=== PATIENT | female | born 1950 | race Caucasian/White ===

== ENCOUNTER 2023-10-12 14:26 | Inpatient (IN) | payer MEDICARE, MEDICAID ==
[~2023-10-12] VITALS: Ht 167.6 cm; Wt 113.0 kg
[~2023-10-12 14:26] MED LIST: DIAZ5TAB3 PO; HYDR-2457 PO; LISI40TA16 PO; MORP1TAB15 PO
[2023-10-12 15:24] LABS: Basophils # (auto) 0 10 ^3/uL (0-0.2); Basophils % (auto) 0.6 % (0.0-2.0); Eosinophils # (auto) 0.3 10 ^3/uL (0-0.8); Eosinophils % (auto) 4.7 % (0.0-7.0); Hematocrit 29.4 % (36.0-46.0); Hemoglobin 9.9 g/dL (12.2-16.2); Lymphocytes # (auto) 1.3 10 ^3/uL (0.4-5.4); Lymphocytes % (auto) 19.2 % (10.0-50.0); Mean Corpuscular Hemoglobin 29.2 pg (28.0-32.0); Mean Corpuscular Hgb Conc. 33.8 g/dL (32.0-36.0); Mean Corpuscular Volume 86.4 fL (80.0-100.0); Monocytes # (auto) 0.5 10 ^3/uL (0-1.3); Monocytes % (auto) 7.3 % (0.0-12.0); Neutrophils # (auto) 4.8 10 ^3/uL (1.6-8.6); Neutrophils % (auto) 68.2 % (37.0-80.0); Nucleated Red Blood Cells % 0.1 %; Red Cell Distribution Width 14.3 % (11.8-14.3)
[2023-10-12 15:39] LABS: Chloride 103 mmol/L (98-107); Sodium 137 mmol/L (136-145)
[2023-10-12 15:40] LABS: Anion Gap 4 (5-15); Carbon Dioxide 30 mmol/L (20-30)
[2023-10-12 15:41] LABS: Calcium 8.9 mg/dL (8.7-10.4)
[2023-10-12 15:45] LABS: Blood Urea Nitrogen 12 mg/dL (9-23); Glucose 149 mg/dL (74-106)
[2023-10-12] MEDS: MORPHINE SULFATE INJ 2 MG/ml SYRG IV ONE (18:15)
[2023-10-12] MEDS: ONDANSETRON HCL 4 MG/2 ML VIAL IV ONE (18:15)
[2023-10-12] MEDS ORDERED: ACETAMINOPHEN 325 MG TAB PO PRN ×2 (18:30→18:45)
[2023-10-12] MEDS ORDERED: DOCUSATE SOD 100 MG CAP PO PRN ×2 (18:30→18:45)
[2023-10-12] MEDS ORDERED: ONDANSETRON HCL 4 MG/2 ML VIAL IV PRN ×2 (18:30→18:45)
[2023-10-12] MEDS ORDERED: HYDROmorphone HCL 2 MG/ML VL/or syr IV PRN ×2 (18:30→18:45)
[2023-10-12] MEDS ORDERED: HYDROcodone-ACET 5/325MG TAB PO PRN (18:30)
[2023-10-12 18:45] VITALS: PULSE 82; RESP 15; O2SAT 99
[2023-10-12] MEDS ORDERED: PERCOT PO (19:09)
[2023-10-12] MEDS ORDERED: MORP1TAB12 PO (19:09)
[2023-10-12 19:28] LABS: Urine Bacteria None Seen /hpf (None Seen)
[2023-10-12 19:58] LABS: Urine Blood 2+ /uL (Negative); Urine Clarity Turbid (Clear); Urine Color Yellow (Yellow); Urine Mucus FEW (None Seen); Urine Protein, UAD TRACE (Negative); Urine Urobilinogen 2 mg/dL (Negative); Urine WBC 91 /hpf (0 - 5)
[2023-10-12] MEDS ORDERED: SODIUM CHLOR 0.9% PF (SALINE LOCK) 10ML VIAL/SYR IV SCH (22:00)
[2023-10-12] MEDS: SODIUM CHLOR 0.9% PF (SALINE LOCK) 10ML VIAL/SYR IV SCH (22:22)
[2023-10-12] MEDS: MORPHINE SULF 15mg ER tab PO SCH (22:31)
[2023-10-12] MEDS: OXYCODONE W/ ACETAMINOPHEN 5/325MG TABLET PO SCH (22:31)
[2023-10-12] MEDS: diazePAM 5 MG TAB PO SCH (22:31)
[2023-10-13] VITALS (7 sets, daily range): BP systolic 97–151; BP diastolic 31–60; PULSE 72–103; RESP 18–20; TEMP 97.5–98.9; O2SAT 95–99
[2023-10-13] MEDS: ENOXAPARIN SOD 40 MG/0.4 ML SYRINGE SC SCH (09:42)
[2023-10-13 09:43] LABS: Hepatitis B Surface Antigen Negative (Negative)
[2023-10-13] MEDS: LISINOPRIL 20 MG TAB PO SCH (09:43)
[2023-10-13] MEDS ORDERED: ENOXAPARIN SOD 40 MG/0.4 ML SYRINGE SC SCH (10:00)
[2023-10-13 10:04] LABS: Hepatitis C Antibody Negative (Negative)
[2023-10-13] MEDS: SODIUM CHLORIDE 0.9% 1,000 ML IV SCH (10:30)
[2023-10-13] MEDS: PIPERACILLIN-TAZOB 3.375GM 100 ML IV ONE (10:30)
[2023-10-13] MEDS ORDERED: GABA-1250 PO (13:10)
[2023-10-13] MEDS: PIPERACILLIN-TAZOB 3.375GM 100 ML IV SCH (14:25)
[2023-10-13] MEDS: HYDROcodone-ACET 5/325MG TAB PO PRN (17:31)
[2023-10-13] MEDS ORDERED: BUPRTAB3 PO (18:10)
[2023-10-13] MEDS ORDERED: ASPI81CH74 PO (18:11)
[2023-10-13] MEDS ORDERED: ASPI-498 OR (18:11)
[2023-10-13] MEDS ORDERED: MONT-8 PO (18:12)
[2023-10-13] MEDS ORDERED: SERT-206 PO (18:13)
[2023-10-14] VITALS (8 sets, daily range): BP systolic 120–154; BP diastolic 38–60; PULSE 75–94; RESP 15–22; TEMP 97.8–98.5; O2SAT 96–99
[2023-10-14 05:50] LABS: Basophils # (auto) 0 10 ^3/uL (0-0.2); Basophils % (auto) 0.7 % (0.0-2.0); Eosinophils # (auto) 0.5 10 ^3/uL (0-0.8); Eosinophils % (auto) 7.9 % (0.0-7.0); Hematocrit 27.5 % (36.0-46.0); Hemoglobin 9.4 g/dL (12.2-16.2); Lymphocytes % (auto) 16.3 % (10.0-50.0); Mean Corpuscular Hemoglobin 29.4 pg (28.0-32.0); Mean Corpuscular Hgb Conc. 34.3 g/dL (32.0-36.0); Mean Corpuscular Volume 85.8 fL (80.0-100.0); Monocytes # (auto) 0.3 10 ^3/uL (0-1.3); Monocytes % (auto) 5.8 % (0.0-12.0); Neutrophils # (auto) 4.1 10 ^3/uL (1.6-8.6); Neutrophils % (auto) 69.3 % (37.0-80.0); Red Cell Distribution Width 14.1 % (11.8-14.3); White Blood Cell 5.9 10^3/uL (4.4-10.8)
[2023-10-14 06:07] LABS: INR 1.07 (0.9-1.15); Partial Thromboplastin Time 26.1 SEC (24.5-34.5); Prothrombin Time 11.3 sec (9.3-11.8)
[2023-10-14 06:15] LABS: Alanine Aminotransferase 10 U/L (7-40); Alkaline Phosphatase 82 U/L (46-116); Anion Gap 1 (5-15); Aspartate Aminotransferase 13 U/L (13-40); BUN/Creatinine Ratio 18.9 (10.0-20.0); Blood Urea Nitrogen 10 mg/dL (9-23); Calcium 8.7 mg/dL (8.7-10.4); Carbon Dioxide 36 mmol/L (20-30); Chloride 102 mmol/L (98-107); Glucose 124 mg/dL (74-106); Sodium 139 mmol/L (136-145)
[2023-10-14 06:16] LABS: Bilirubin, Total 0.7 mg/dL (0.2-1.0); Total Protein 6.1 g/dL (5.7-8.2)
[2023-10-15] VITALS (7 sets, daily range): BP systolic 105–158; BP diastolic 33–70; PULSE 72–87; RESP 15–22; TEMP 97.7–98.5; O2SAT 96–100
[2023-10-15] MEDS ORDERED: CEPH500C PO (11:11)
== END 2023-10-15 18:20 | disposition home health service (06) | DRG 563 ==
LOC: EDBD 14:26 → ER 14:30 → OVERFLOW 18:21 → WEST WING 23:49
PROVIDERS: ADMIT Internal Medicine; ATTEND Internal Medicine
DX: S82.54XA Nondisplaced fracture of medial malleolus of right tibia, initial encounter for closed fracture (principal); N39.0 Urinary tract infection, site not specified; J96.10 Chronic respiratory failure, unspecified whether with hypoxia or hypercapnia; Z68.41 Body mass index [BMI] 40.0-44.9, adult; I10 Essential (primary) hypertension; J44.9 Chronic obstructive pulmonary disease, unspecified; E11.9 Type 2 diabetes mellitus without complications; M17.11 Unilateral primary osteoarthritis, right knee; E66.9 Obesity, unspecified; D64.9 Anemia, unspecified; Z87.891 Personal history of nicotine dependence; Z79.4 Long term (current) use of insulin; Z90.49 Acquired absence of other specified parts of digestive tract; Z90.710 Acquired absence of both cervix and uterus; W18.39XA Other fall on same level, initial encounter; Y93.89 Activity, other specified; Y92.89 Other specified places as the place of occurrence of the external cause; Y99.8 Other external cause status
CPT/HCPCS: 36415; 71045; 73562; 73600; 73700; 80048; 80053; 81001; 83036; 85025; 85610; 85730; 86803; 87086; 87340; 96374; 96375; 97163; G0378; J2405; J2543

== ENCOUNTER 2023-12-30 20:17 | Inpatient (IN) | payer MEDICARE, MEDICAID ==
[~2023-12-30] VITALS: Ht 167.6 cm; Wt 109.3 kg
[~2023-12-30 20:17] MED LIST changes: +ASPI81CH74 PO; +BUPRTAB3 PO; +CEPH500C PO; +GABA-1250 PO; +MONT-8 PO; +MORP1TAB12 PO; -MORP1TAB15 PO; +PERCOT PO; +SERT-206 PO
[2023-12-30 21:20] VITALS: PULSE 95; RESP 18; O2SAT 96
[2023-12-30 21:30] LABS: Basophils # (auto) 0 10 ^3/uL (0-0.2); Basophils % (auto) 0.3 % (0.0-2.0); Eosinophils # (auto) 0.2 10 ^3/uL (0-0.8); Eosinophils % (auto) 1.8 % (0.0-7.0); Hematocrit 32.7 % (36.0-46.0); Hemoglobin 10.9 g/dL (12.2-16.2); Lymphocytes # (auto) 0.5 10 ^3/uL (0.4-5.4); Lymphocytes % (auto) 5.3 % (10.0-50.0); Mean Corpuscular Hemoglobin 27.8 pg (28.0-32.0); Mean Corpuscular Hgb Conc. 33.4 g/dL (32.0-36.0); Mean Corpuscular Volume 83.2 fL (80.0-100.0); Monocytes # (auto) 0.4 10 ^3/uL (0-1.3); Monocytes % (auto) 3.7 % (0.0-12.0); Neutrophils # (auto) 8.4 10 ^3/uL (1.6-8.6); Neutrophils % (auto) 88.9 % (37.0-80.0); Platelet Count (auto) 137 10^3/uL (140-450); Red Blood Cells 3.92 10^6/uL (4.0-5.20); Red Cell Distribution Width 14.3 % (11.8-14.3); White Blood Cell 9.5 10^3/uL (4.4-10.8)
[2023-12-30 21:35] LABS: Albumin 3.4 g/dL (3.2-4.8); Alkaline Phosphatase 97 U/L (46-116); Anion Gap 3 (5-15); Aspartate Aminotransferase 16 U/L (13-40); BUN/Creatinine Ratio 19.2 (10.0-20.0); Bilirubin, Total 0.9 mg/dL (0.2-1.0); Blood Urea Nitrogen 10 mg/dL (9-23); Calcium 9.2 mg/dL (8.7-10.4); Carbon Dioxide 36 mmol/L (20-31); Chloride 99 mmol/L (98-107); Glucose 170 mg/dL (74-106); Lipase 35 U/L (12-53); Potassium 4.2 mmol/L (3.5-5.1); Sodium 138 mmol/L (136-145); Total Protein 6.9 g/dL (5.7-8.2)
[2023-12-30 21:41] LABS: Alanine Aminotransferase 9 U/L (7-40)
[2023-12-30] MEDS: AZITHROMYCIN 250 MG TAB PO ONE (23:01)
[2023-12-30] MEDS: methylPREDNISolone SOD SUCC 125 MG/2 ML VL IV ONE (23:52)
[2023-12-31] VITALS (12 sets, daily range): BP systolic 107–163; BP diastolic 27–70; PULSE 76–93; RESP 16–22; TEMP 97.8–98.8; O2SAT 94–100
[2023-12-31 00:30] LABS: Urine Amorphous Crystal FEW /hpf (None Seen); Urine Bacteria FEW /hpf (None Seen); Urine Blood 2+ /uL (Negative); Urine Clarity Turbid (Clear); Urine Color Colorless (Yellow); Urine Protein, UAD TRACE (Negative); Urine Specific Gravity 1.012 (1.001-1.035); Urine Urobilinogen 2 mg/dL (Negative); Urine WBC 10 /hpf (0 - 5); Urine pH 8.5 (5.0-9.0)
[2023-12-31] MEDS ORDERED: SODIUM CHLORIDE 0.9% 500 ML IV ONE (02:30)
[2023-12-31] MEDS ORDERED: ACETAMINOPHEN 500 MG TAB PO PRN (02:30)
[2023-12-31] MEDS: ATORVASTATIN 20 MG TAB PO ONE (02:36)
[2023-12-31] MEDS: ENOXAPARIN SOD 40 MG/0.4 ML SYRINGE SC ONE (02:37)
[2023-12-31] MEDS: IPRATROPIUM BROM 0.5 MG/2.5ML INH SOL NEB SCH (02:44)
[2023-12-31] MEDS: LEVALBUTEROL HCL 1.25 MG/3 ML NEB NEB SCH (02:44)
[2023-12-31] MEDS: SODIUM CHLORIDE 0.9% 1,800 ML IV ONE (02:45)
[2023-12-31] MEDS: ASPirin 81 mg TAB PO ONE (02:55)
[2023-12-31] MEDS: cefTRIAXone 1GM/50ML D5W 50 ML IV ONE (03:03)
[2023-12-31 03:43] LABS: COVID19 ANTIGEN SOFIA FIA NEGATIVE (NEGATIVE)
[2023-12-31 03:51] LABS: Anion Gap 2 (5-15); Carbon Dioxide 37 mmol/L (20-31); Chloride 99 mmol/L (98-107); Potassium 4.2 mmol/L (3.5-5.1); Sodium 138 mmol/L (136-145)
[2023-12-31 03:52] LABS: Calcium 9.5 mg/dL (8.7-10.4); INR 1.12 (0.9-1.15); Partial Thromboplastin Time 28.1 SEC (24.5-34.5); Prothrombin Time 11.8 sec (9.3-11.8)
[2023-12-31 03:53] LABS: % Iron Saturation 13.7 % (15-50)
[2023-12-31 03:57] LABS: Blood Urea Nitrogen 11 mg/dL (9-23); Glucose 199 mg/dL (74-106)
[2023-12-31 04:32] LABS: CRP High Sensitivity 3.84 mg/dL (<1.0)
[2023-12-31] MEDS: PANTOPRAZOLE 40 MG/10 ML VIAL INJ IV SCH (04:51)
[2023-12-31] MEDS ORDERED: GABAPENTIN 300 MG CAP PO SCH (06:00)
[2023-12-31] MEDS ORDERED: VANCOMYCIN PER PHARMACY 0 MG IV SCH (06:15)
[2023-12-31] MEDS: VANCOMYCIN 1.25 GM/250 ML IV ONE (08:08)
[2023-12-31 08:14] LABS: Basophils # (auto) 0 10 ^3/uL (0-0.2); Basophils % (auto) 0.1 % (0.0-2.0); Eosinophils # (auto) 0 10 ^3/uL (0-0.8); Eosinophils % (auto) 0.1 % (0.0-7.0); Hematocrit 32.7 % (36.0-46.0); Hemoglobin 11.1 g/dL (12.2-16.2); Lymphocytes # (auto) 0.4 10 ^3/uL (0.4-5.4); Lymphocytes % (auto) 5.9 % (10.0-50.0); Mean Corpuscular Hemoglobin 28.4 pg (28.0-32.0); Mean Corpuscular Hgb Conc. 33.9 g/dL (32.0-36.0); Mean Corpuscular Volume 83.8 fL (80.0-100.0); Monocytes # (auto) 0 10 ^3/uL (0-1.3); Monocytes % (auto) 0.8 % (0.0-12.0); Neutrophils # (auto) 5.6 10 ^3/uL (1.6-8.6); Neutrophils % (auto) 93.1 % (37.0-80.0); Platelet Count (auto) 130 10^3/uL (140-450); Red Blood Cells 3.91 10^6/uL (4.0-5.20); Red Cell Distribution Width 14.4 % (11.8-14.3)
[2023-12-31] MEDS: VANCOMYCIN 1GM/250ML 200 ML IV ONE ×2 (08:25→23:21)
[2023-12-31] MEDS: IOHEXOL 350 MG/ML 100ML IJ ONE ×2 (08:26)
[2023-12-31 08:30] LABS: Albumin 3.4 g/dL (3.2-4.8); Alkaline Phosphatase 93 U/L (46-116); Anion Gap 5 (5-15); Aspartate Aminotransferase 12 U/L (13-40); BUN/Creatinine Ratio 21.4 (10.0-20.0); Blood Urea Nitrogen 12 mg/dL (9-23); Calcium 9.4 mg/dL (8.7-10.4); Carbon Dioxide 33 mmol/L (20-31); Chloride 100 mmol/L (98-107); Glucose 256 mg/dL (74-106); Potassium 4.2 mmol/L (3.5-5.1); Sodium 138 mmol/L (136-145)
[2023-12-31 08:31] LABS: Bilirubin, Total 0.7 mg/dL (0.2-1.0)
[2023-12-31 08:36] LABS: Alanine Aminotransferase < 9 U/L (7-40)
[2023-12-31] MEDS: MONTELUKAST SODIUM 10 MG TAB PO SCH (10:53)
[2023-12-31] MEDS: FERROUS SULFATE 325mg EC TAB PO SCH (10:53)
[2023-12-31] MEDS: CEFEPIME 2GM/50ML NS 50 ML IV SCH (10:53)
[2023-12-31] MEDS: predniSONE 20 MG TAB PO SCH (10:54)
[2023-12-31] MEDS: ASPirin 81 mg TAB PO SCH (10:54)
[2023-12-31] MEDS: SERTRALINE HCL 50 MG TAB PO SCH (10:54)
[2023-12-31] MEDS: ERGOCALCIFEROL 50,000 UNIT(1.25MG) CAP PO SCH (10:57)
[2023-12-31] MEDS: ACCU-CHEK COMFORT CURVE STRIP VI ONE (10:59)
[2023-12-31] MEDS: InsuLIN REG 1unit/0.01ml Soln (100units/ml) SC ONE (11:32)
[2023-12-31] MEDS: DEXTROSE (50%) 50ML SYRG IV ONE (11:33)
[2023-12-31 18:32] LABS: Rapid Influenza A Negative (Negative); Rapid Influenza B Negative (Negative)
[2023-12-31] MEDS ORDERED: METO25TA5 PO (18:51)
[2023-12-31] MEDS ORDERED: ATOR20TA50 PO (18:51)
[2023-12-31] MEDS: AZITHROMYCIN 500MG/ 250ML 250 ML IV SCH (20:24)
[2023-12-31] MEDS: ATORVASTATIN 20 MG TAB PO SCH (20:34)
[2023-12-31] MEDS ORDERED: VANCOMYCIN 1GM/250ML 250 ML IV SCH (22:00)
[2024-01-01] VITALS (18 sets, daily range): BP systolic 133–155; BP diastolic 50–70; PULSE 70–103; RESP 16–22; TEMP 98–98.6; O2SAT 94–100
[2024-01-01] MEDS ORDERED: EPINEPHrine HCL 1 MG/1 ML AMP ONE (08:19)
[2024-01-01] MEDS ORDERED: LIDOCAINE 2%HCL (LOCAL ANESTH.) INJ 20ML MDV ONE (08:19)
[2024-01-01] MEDS ORDERED: GLYCOPYRROLATE 0.2 MG/ML 1ML VIAL ONE (08:19)
[2024-01-01] MEDS ORDERED: LIDOCAINE 2% JELLY 11ml (GLYDO) ONE (08:19)
[2024-01-01] MEDS ORDERED: FLUMAZENIL 0.1 MG/ML INJ 10ML MDV IV ONE (08:20)
[2024-01-01] MEDS ORDERED: SODIUM CHLORIDE LOCK 10 ML ONE (08:20)
[2024-01-01] MEDS ORDERED: NALOXONE HCL 0.4 MG/ML VIAL ONE (08:20)
[2024-01-01] MEDS ORDERED: cefTRIAXone 1GM/50ML D5W 50 ML IV SCH (09:00)
[2024-01-01] MEDS: fentaNYL CITRATE 100 MCG/2 ML VL ONE (09:01)
[2024-01-01] MEDS: MIDAZOLAM HCL 5 MG/ML-1ML VIAL ONE (09:01)
[2024-01-01] MEDS ORDERED: ENOXAPARIN SOD 60 MG/0.6 ML SYRINGE SC SCH (10:00)
[2024-01-01 12:44] LABS: Alanine Aminotransferase 11 U/L (7-40); Albumin 3.2 g/dL (3.2-4.8); Alkaline Phosphatase 83 U/L (46-116); Anion Gap 6 (5-15); Aspartate Aminotransferase 18 U/L (13-40); BUN/Creatinine Ratio 30.2 (10.0-20.0); Blood Urea Nitrogen 16 mg/dL (9-23); Calcium 9.2 mg/dL (8.7-10.4); Carbon Dioxide 34 mmol/L (20-31); Chloride 102 mmol/L (98-107); Glucose 176 mg/dL (74-106); Potassium 3.6 mmol/L (3.5-5.1); Sodium 142 mmol/L (136-145)
[2024-01-01 12:45] LABS: Bilirubin, Total 0.8 mg/dL (0.2-1.0); Total Protein 6.4 g/dL (5.7-8.2)
[2024-01-01 16:42] LABS: Basophils # (auto) 0 10 ^3/uL (0-0.2); Basophils % (auto) 0.2 % (0.0-2.0); Eosinophils # (auto) 0 10 ^3/uL (0-0.8); Eosinophils % (auto) 0.3 % (0.0-7.0); Hematocrit 31.7 % (36.0-46.0); Hemoglobin 10.6 g/dL (12.2-16.2); Lymphocytes # (auto) 0.8 10 ^3/uL (0.4-5.4); Lymphocytes % (auto) 10.6 % (10.0-50.0); Mean Corpuscular Hemoglobin 28.1 pg (28.0-32.0); Mean Corpuscular Hgb Conc. 33.4 g/dL (32.0-36.0); Mean Corpuscular Volume 84.2 fL (80.0-100.0); Monocytes # (auto) 0.4 10 ^3/uL (0-1.3); Neutrophils % (auto) 82.9 % (37.0-80.0); Platelet Count (auto) 159 10^3/uL (140-450); Red Blood Cells 3.76 10^6/uL (4.0-5.20); Red Cell Distribution Width 14.5 % (11.8-14.3); White Blood Cell 7.2 10^3/uL (4.4-10.8)
[2024-01-01] MEDS: VANCOMYCIN 1GM/250ML 250 ML IV SCH ×2 (17:33→23:30)
[2024-01-01] MEDS: HYDROcodone-ACET 5/325MG TAB PO PRN (20:46)
[2024-01-01] MEDS: MUPIROCIN 2% OINT 15gm or 22gm FOR MRSA NARES EACHNOSTRI SCH (22:00)
[2024-01-02] VITALS (15 sets, daily range): BP systolic 138–171; BP diastolic 42–74; PULSE 83–94; RESP 18–20; TEMP 97.3–98.6; O2SAT 92–99
[2024-01-02 07:33] LABS: Anion Gap 4 (5-15); Carbon Dioxide 35 mmol/L (20-31); Chloride 102 mmol/L (98-107); Potassium 3.1 mmol/L (3.5-5.1); Sodium 141 mmol/L (136-145)
[2024-01-02 07:36] LABS: Basophils # (auto) 0 10 ^3/uL (0-0.2); Basophils % (auto) 0.3 % (0.0-2.0); Eosinophils # (auto) 0.1 10 ^3/uL (0-0.8); Eosinophils % (auto) 1.6 % (0.0-7.0); Hematocrit 29.9 % (36.0-46.0); Hemoglobin 10.3 g/dL (12.2-16.2); Lymphocytes # (auto) 1.2 10 ^3/uL (0.4-5.4); Lymphocytes % (auto) 17.7 % (10.0-50.0); Mean Corpuscular Hemoglobin 28.6 pg (28.0-32.0); Mean Corpuscular Hgb Conc. 34.4 g/dL (32.0-36.0); Mean Corpuscular Volume 83.1 fL (80.0-100.0); Monocytes # (auto) 0.4 10 ^3/uL (0-1.3); Monocytes % (auto) 6.7 % (0.0-12.0); Neutrophils # (auto) 4.9 10 ^3/uL (1.6-8.6); Neutrophils % (auto) 73.7 % (37.0-80.0); Platelet Count (auto) 152 10^3/uL (140-450); Red Cell Distribution Width 14.4 % (11.8-14.3); White Blood Cell 6.6 10^3/uL (4.4-10.8)
[2024-01-02 07:39] LABS: Blood Urea Nitrogen 13 mg/dL (9-23); Glucose 131 mg/dL (74-106)
[2024-01-02] MEDS: POTASSIUM CHL 20MEQ/100ML 100 ML IV SCH (09:00)
[2024-01-02] MEDS: ENOXAPARIN SOD 60 MG/0.6 ML SYRINGE SC SCH (11:12)
[2024-01-02] MEDS: VANCOMYCIN 1GM/250ML 250 ML IV SCH (15:58)
[2024-01-02] MEDS: POTASSIUM CHLORIDE 40 MEQ, LIDOCAINE 1% (LOCAL ANESTH.) 4 ML in SODIUM CHL 0.9% 250 ML IV ONE (15:59)
[2024-01-03] VITALS (16 sets, daily range): BP systolic 123–179; BP diastolic 58–82; PULSE 73–94; RESP 18–24; TEMP 97.3–98.1; O2SAT 96–100
[2024-01-03 07:35] LABS: Basophils # (auto) 0 10 ^3/uL (0-0.2); Basophils % (auto) 0.5 % (0.0-2.0); Eosinophils # (auto) 0.2 10 ^3/uL (0-0.8); Eosinophils % (auto) 4.3 % (0.0-7.0); Hematocrit 32.2 % (36.0-46.0); Lymphocytes % (auto) 17.8 % (10.0-50.0); Mean Corpuscular Hemoglobin 28.3 pg (28.0-32.0); Monocytes # (auto) 0.4 10 ^3/uL (0-1.3); Monocytes % (auto) 6.2 % (0.0-12.0); Neutrophils # (auto) 4.1 10 ^3/uL (1.6-8.6); Neutrophils % (auto) 71.2 % (37.0-80.0); Platelet Count (auto) 155 10^3/uL (140-450); Red Blood Cells 3.88 10^6/uL (4.0-5.20); Red Cell Distribution Width 14.5 % (11.8-14.3); White Blood Cell 5.8 10^3/uL (4.4-10.8)
[2024-01-03 07:37] LABS: Albumin 3.3 g/dL (3.2-4.8); Alkaline Phosphatase 82 U/L (46-116); Anion Gap 4 (5-15); Aspartate Aminotransferase 10 U/L (13-40); BUN/Creatinine Ratio 15.1 (10.0-20.0); Bilirubin, Total 0.9 mg/dL (0.2-1.0); Blood Urea Nitrogen 8 mg/dL (9-23); Calcium 9.1 mg/dL (8.7-10.4); Carbon Dioxide 34 mmol/L (20-31); Chloride 103 mmol/L (98-107); Glucose 141 mg/dL (74-106); Potassium 3.4 mmol/L (3.5-5.1); Sodium 141 mmol/L (136-145); Total Protein 6.7 g/dL (5.7-8.2)
[2024-01-03 07:46] LABS: Alanine Aminotransferase < 9 U/L (7-40)
[2024-01-03] MEDS: POTASSIUM CHL 20 Meq TABLET PO ONE (17:52)
[2024-01-03] MEDS: LISINOPRIL 20 MG TAB PO ONE (17:52)
[2024-01-03] MEDS: METOPROLOL SUCCINATE XL 50 MG TAB PO ONE (17:53)
[2024-01-04] VITALS (14 sets, daily range): BP systolic 109–166; BP diastolic 49–69; PULSE 66–90; RESP 16–21; TEMP 97.4–98.3; O2SAT 96–100
[2024-01-04 07:03] LABS: Basophils # (auto) 0 10 ^3/uL (0-0.2); Basophils % (auto) 0.5 % (0.0-2.0); Eosinophils # (auto) 0.5 10 ^3/uL (0-0.8); Eosinophils % (auto) 5.9 % (0.0-7.0); Hematocrit 33.6 % (36.0-46.0); Hemoglobin 11.4 g/dL (12.2-16.2); Lymphocytes % (auto) 13.1 % (10.0-50.0); Mean Corpuscular Hgb Conc. 33.8 g/dL (32.0-36.0); Monocytes # (auto) 0.5 10 ^3/uL (0-1.3); Monocytes % (auto) 6.4 % (0.0-12.0); Neutrophils # (auto) 5.8 10 ^3/uL (1.6-8.6); Neutrophils % (auto) 74.1 % (37.0-80.0); Platelet Count (auto) 161 10^3/uL (140-450); Red Blood Cells 4.05 10^6/uL (4.0-5.20); Red Cell Distribution Width 14.4 % (11.8-14.3); White Blood Cell 7.9 10^3/uL (4.4-10.8)
[2024-01-04 07:16] LABS: Chloride 104 mmol/L (98-107); Potassium 3.8 mmol/L (3.5-5.1); Sodium 140 mmol/L (136-145)
[2024-01-04 07:17] LABS: Anion Gap 4 (5-15); Carbon Dioxide 32 mmol/L (20-31)
[2024-01-04 07:18] LABS: Calcium 9.3 mg/dL (8.7-10.4)
[2024-01-04 07:23] LABS: Blood Urea Nitrogen 8 mg/dL (9-23); Glucose 145 mg/dL (74-106)
[2024-01-04] MEDS: LISINOPRIL 20 MG TAB PO SCH (09:27)
[2024-01-04] MEDS: METOPROLOL SUCCINATE XL 50 MG TAB PO SCH (09:27)
[2024-01-04 10:56] LABS: INR 1.17 (0.9-1.15); Partial Thromboplastin Time 28.2 SEC (24.5-34.5); Prothrombin Time 12.3 sec (9.3-11.8)
[2024-01-04] MEDS: hydrALAZINE HCL 20 MG/ML VL IV PRN (13:20)
[2024-01-04] MEDS: MORPHINE SULFATE INJ 2 MG/ml SYRG IV PRN (17:20)
[2024-01-05] VITALS (13 sets, daily range): BP systolic 125–179; BP diastolic 46–72; PULSE 71–85; RESP 16–20; TEMP 97.7–99; O2SAT 95–100
[2024-01-05 07:33] LABS: Basophils # (auto) 0 10 ^3/uL (0-0.2); Basophils % (auto) 0.6 % (0.0-2.0); Eosinophils # (auto) 0.5 10 ^3/uL (0-0.8); Eosinophils % (auto) 6.5 % (0.0-7.0); Hematocrit 30.4 % (36.0-46.0); Hemoglobin 10.5 g/dL (12.2-16.2); Lymphocytes # (auto) 1.2 10 ^3/uL (0.4-5.4); Lymphocytes % (auto) 14.3 % (10.0-50.0); Mean Corpuscular Hemoglobin 28.5 pg (28.0-32.0); Mean Corpuscular Hgb Conc. 34.6 g/dL (32.0-36.0); Mean Corpuscular Volume 82.4 fL (80.0-100.0); Monocytes # (auto) 0.6 10 ^3/uL (0-1.3); Monocytes % (auto) 7.4 % (0.0-12.0); Neutrophils % (auto) 71.2 % (37.0-80.0); Nucleated Red Blood Cells % 0.2 %; Platelet Count (auto) 169 10^3/uL (140-450); Red Blood Cells 3.69 10^6/uL (4.0-5.20); Red Cell Distribution Width 14.3 % (11.8-14.3); White Blood Cell 8.4 10^3/uL (4.4-10.8)
[2024-01-05 07:48] LABS: Anion Gap 4 (5-15); Carbon Dioxide 33 mmol/L (20-31); Chloride 104 mmol/L (98-107); Potassium 3.4 mmol/L (3.5-5.1); Sodium 141 mmol/L (136-145)
[2024-01-05 07:49] LABS: Calcium 9.3 mg/dL (8.7-10.4)
[2024-01-05 07:54] LABS: BUN/Creatinine Ratio 15.4 (10.0-20.0); Blood Urea Nitrogen 8 mg/dL (9-23); Glucose 129 mg/dL (74-106)
[2024-01-05] MEDS: LIDOCAINE 1% (LOCAL ANESTH.) PF 5ml SDV ID ONE (10:30)
[2024-01-05] MEDS: POTASSIUM CHL 20 Meq TABLET PO ONE (11:37)
[2024-01-05] MEDS: amLODIPine BESYLATE 5 MG TAB PO SCH (11:39)
[2024-01-05] MEDS ORDERED: SODIUM CHLOR 0.9% PF (SALINE LOCK) 10ML VIAL/SYR IV SCH (22:00)
== END 2024-01-05 18:20 | DRG 871 ==
LOC: EDBD 20:17 → ER 20:17 → TELE 12-31 02:12 → TELE-WESTW 12-31 17:44 → WEST WING 01-02 03:18
PROVIDERS: ADMIT Internal Medicine; ATTEND Internal Medicine
PROC: 0B9F8ZX Drainage of Right Lower Lung Lobe, Via Natural or Artificial Opening Endoscopic, Diagnostic (ICD-10-PCS; principal; 2024-01-01 09:00)
PROC: 05HY33Z Insertion of Infusion Device into Upper Vein, Percutaneous Approach (ICD-10-PCS; 2024-01-05)
PROC: B54MZZA Ultrasonography of Right Upper Extremity Veins, Guidance (ICD-10-PCS; 2024-01-05)
DX: A41.02 Sepsis due to Methicillin resistant Staphylococcus aureus (principal); I21.A1 Myocardial infarction type 2; J15.69 Pneumonia due to other Gram-negative bacteria; J96.01 Acute respiratory failure with hypoxia; J15.9 Unspecified bacterial pneumonia; J15.212 Pneumonia due to Methicillin resistant Staphylococcus aureus; J44.0 Chronic obstructive pulmonary disease with (acute) lower respiratory infection; J44.1 Chronic obstructive pulmonary disease with (acute) exacerbation; N30.00 Acute cystitis without hematuria; D64.9 Anemia, unspecified; Z74.01 Bed confinement status; Z20.822 Contact with and (suspected) exposure to COVID-19; D69.59 Other secondary thrombocytopenia; E66.9 Obesity, unspecified; M32.9 Systemic lupus erythematosus, unspecified; I10 Essential (primary) hypertension; E11.9 Type 2 diabetes mellitus without complications; Z90.710 Acquired absence of both cervix and uterus; Z90.49 Acquired absence of other specified parts of digestive tract; Z87.891 Personal history of nicotine dependence; Z82.49 Family history of ischemic heart disease and other diseases of the circulatory system; Z80.1 Family history of malignant neoplasm of trachea, bronchus and lung; Z79.82 Long term (current) use of aspirin; Z79.899 Other long term (current) drug therapy; Z63.4 Disappearance and death of family member; Z80.0 Family history of malignant neoplasm of digestive organs; Z68.39 Body mass index [BMI] 39.0-39.9, adult
CPT/HCPCS: 31624; 36415; 36569; 71045; 71275; 73600; 76937; 80048; 80053; 80202; 81001; 82306; 82607; 82728; 83036; 83540; 83550; 83605; 83690; 83880; 84443; 84484; 85025; 85610; 85730; 86141; 87040; 87070; 87077; 87081; 87086; 87186; 87205; 87426; 87804; 93005; 93306; 93970; 94640; 96374; 97110; 97163; 97530; 99291; G0378; J0171; J0692; J1815; J2003; J2250; J2470

== ENCOUNTER 2024-01-26 11:58 | Emergency (ER) | payer MEDICARE, MEDICAID ==
[~2024-01-26] VITALS: Ht 160 cm; Wt 104.5 kg
[~2024-01-26 11:58] MED LIST changes: +ATOR20TA50 PO; -GABA-1250 PO; -HYDR-2457 PO; -LISI40TA16 PO; +METO25TA5 PO; -PERCOT PO
--- NOTE | 2024-01-26 12:25 | ED.PDOC ---
Eye-HPI HPI Comments A 73 year old female brought in by EMS presents to the ED with a chief complaint of RT ear pain onset 3 weeks. Per EMS, patient was discharged from this hospital on 01/06/2024 and was taken to [facility] acute with the diagnosis of Pneumonia. Patient states she was discharged with a PICC line on her RT arm and noticed since then she has been experiencing RT ear pain. She has a past medical history of Arthritis, COPD, HTN, DM, HLD. She denies headache, dizziness, chest pain, shortness of breath, nausea, vomiting and diarrhea. No other symptoms or modifying factors present at this time. Chief Complaint: Earache Time Seen by MD: 12:05 Primary Care Provider: GARY AVILA) Reviewed Notes: Medications, Allergies Allergies: Coded Allergies: Lidocaine (Verified Allergy, Unknown, 01/26/24) Uncoded Allergies: novacaine (Allergy, Unknown, 01/26/24) Home Meds Active Scripts Bjluezfu-Szoghuzvb-Xw (Otic) (Cortisporin Otic Soln) [address], 1 DROP OT BID for 5 Days, #10 DROP Prov:ARTIE SAMAYOA MD 01/26/24 Cephalexin Monohydrate (Cephalexin) 500 Mg Cap, 1 CAP PO TID for 7 Days, #21 CAP Prov:EMIL CAMACHO MD 10/15/23 Reported Medications Atorvastatin Calcium (ATORVASTATIN CALCIUM) 20 Mg Tab, 1 TAB PO DAILY, #30 TAB 5 Refills 12/31/23 Metoprolol Tartrate (Metoprolol Tartrate) 25 Mg Tab, 25 MG PO DAILY for 30 Days, MG 12/31/23 Sertraline Hcl (Sertraline Hcl) 50 Mg Tab, 25 MG PO DAILY for 30 Days, MG 10/13/23 Montelukast Sodium (MONTELUKAST SODIUM) 10 Mg Tab, 10 TAB PO DAILY, #90 TAB 3 Refills 10/13/23 Aspirin (Aspirin 81 Low Dose) 81 Mg Chw, 81 MG PO DAILY, TAB.CHEW 10/13/23 Bupropion HCl (Wellbutrin Xl) 300 Mg Tab, 300 MG PO, TAB 10/13/23 Morphine Sulfate (Morphine Sulfate Er) 15 Mg Tab, 15 MG PO, TAB 10/12/23 Diazepam (Diazepam) 5 Mg Tab, 5 MG PO QHSP 04/20/11 Information Source: Patient, Emergency Med Personnel Mode of Arrival: EMS Timing: Weeks Duration: Since onset Prehospital treatment: None Quality: Pain History of: None Associated signs and symptoms: Ear Pain Past Medical History PAST MEDICAL HISTORY: Arthritis, COPD, DM, High Lipids, HTN Surgical History: Cholecystectomy, Hysterectomy, Tonsillectomy TOWER DIRECTOR History: Denies all TOWER DIRECTOR Hx Family History Family History: Reviewed,noncontributory to illness, Family hx of heart stacy Social History Smoker: Quit Greater Than 1 Year, Cigarettes Alcohol: Denies ETOH Use Drugs: Denies Drug Use Lives In: Home Constitutional: denies: chills, diaphoresis, fatigue, fever, malaise, sweats, weakness, others EENTM: denies: blurred vision, double vision, ear bleeding, ear discharge, ear drainage, ear pain, ear ringing, eye pain, eye redness, hearing loss, mouth pain, mouth swelling, nasal discharge, nose bleeding, nose congestion, nose pain, photophobia, tearing, throat pain, throat swelling, voice changes, others Respiratory: denies: cough, hemoptysis, orthopnea, SOB at rest, shortness of breath, SOB with excertion, stridor, wheezing, others Cardiovascular: denies: chest pain, dizzy spells, diaphoresis, Dyspnea on exertion, edema, irregular heart beat, left arm pain, lightheadedness, palpitations, PND, syncope, others Gastrointestinal: denies: abdomen distended, abdominal pain, blood streaked bowels, constipated, diarrhea, dysphagia, difficulty swallowing, hematemesis, melena, nausea, poor appetite, poor fluid intake, rectal bleeding, rectal pain, vomiting, others Genitourinary: denies: abnormal vagina bleeding, burning, dyspareunia, dysuria, flank pain, frequency, hematuria, incontinence, pain, , vagina discharge, urgency, others Neurological: denies: dizziness, fainting, headache, left sided numbness, left sided weakness, numbness, paresthesia, pre-existing deficit, right sided numbness, right sided weakness, seizure, speech problems, tingling, tremors, weakness, others Musculoskeletal: denies: back pain, gout, joint pain, joint swelling, muscle pain, muscle stiffness, neck pain, others Integumetry: denies: bruises, change in color, change in hair/nails, dryness, laceration, lesions, lumps, rash, wounds, others Allergic/Immunocompromised: denies: Difficulty Healing, Frequent Infections, Hives, Itching, others Hematologic/Lymphatic: denies: anemia, blood clots, easy bleeding, easy bruising, swollen glands, others Endocrine: denies: excessive hunger, excessive sweating, excessive thirst, excessive urination, flushing, intolerance to cold, intolerance to heat, unexplained weight gain, unexplained weight loss, others Psychiatric: denies: anxiety, bipolar disorder, depression, hopeless, panic disorder, schizophrenia, sleepless, suicidal, others All Other Systems: Reviewed and Negative Physical Exam General Appearance: Mild Distress, Obese HEENT: Pharynx Normal, Other (Redness to the right ear with some cerumen) Neck: Full Range of Motion, Non-Tender, Normal, Normal Inspection Respiratory: Chest Non-Tender, Lungs Clear, No Accessory Muscle Use, No Respiratory Distress, Normal Breath Sounds Cardiovascular: No Edema, No JVD, No Murmur, No Gallop, Normal Peripheral Pulses, Regular Rate/Rhythm Breast Exam: Deferred Gastrointestinal: No Organomegaly, Non Tender, No Pulsatile Mass, Normal Bowel Sounds, Soft Genitalia: Deferred Pelvic: Deferred Rectal: Deferred Extremities: No calf tenderness, Normal capillary refill, No pedal edema Musculoskeletal : Apperance: Normal Neurologic: Alert, systems programmer II-XII nml as Tested, Motor Weakness, Normal Affect, Nor mal Mood, No Sensory Deficits Cerebellar Function: Unable to Test Reflexes: Normal Skin: Dry, Normal Color, Warm Lymphatic: No Adenopathy Was a procedure done? Was a procedure done?: No EENT DIFF Eye: N/A Ear: Otitis Externa, Otitis Media X-Ray, Labs, Meds, VS Vital Signs Date Time Temp Pulse Resp B/P (MAP) Pulse Ox O2 Delivery O2 Flow Rate FiO2 01/26/24 16:00 98.4 65 18 141/37 (71) 99 98.4 01/26/24 15:00 66 21 135/33 (67) 99 01/26/24 14:00 66 23 143/43 (76) 99 01/26/24 13:00 70 22 143/41 (75) 99 01/26/24 12:20 98.1 78 23 138/46 (76) 99 98.1 01/26/24 12:20 Nasal Cannula* 2 28 01/26/24 12:10 98.7 83 16 144/80 (486) 86 Current Medications Medications (Trade) Dose Ordered Sig/Rowdy Route Start Time Stop Time Status Last Admin Acetaminophen/ Hydrocodone Bitart (Angela 10/325MG Tab) 1 tab ONCE ONCE PO 01/26/24 13:30 01/26/24 13:31 DC 01/26/24 13:34 Acetaminophen/ Hydrocodone Bitart (Angela 5/325MG Tab) 1 tab ONCE ONCE PO 01/26/24 16:30 01/26/24 16:31 DC 01/26/24 16:36 The patient was irrigated to the right ear The patient was now being discharged The patient was given Angela for the pain The patient will follow up with the primary care doctor The patient will return to the emergency department's the condition worsens. Time of 1ST Reevaluation: 12:35 Reevaluation 1ST: Unchanged Patient Education/Counseling: Diagnosis, Treatment, Prognosis, Need For Follow Up Family Education/Counseling: No Family Present Departure 1 Departure Time of Disposition: 17:14 Impression: Primary Impression: Right ear pain Additional Impression: Otitis externa Qualified Codes: H60.501 - Unspecified acute noninfective otitis externa, right ear Disposition: 30 STILL A PATIENT Condition: Fair e-Prescriptions Gvnvskgu-Lckyvnjjl-Pt (Otic) (Cortisporin Otic Soln) [address] 1 DROP OT BID for 5 Days, #10 DROP Prov: ARTIE SAMAYOA MD 01/26/24 Discharged With: Self Critical Care Note Critical Care Time?: No Stability Stability form required: No I personally scribed for ARTIE SAMAYOA MD ([email or web address]) on 01/26/24 at 12:25. Electronically submitted by Kaylee Parra ([email or web address]). ARTIE SAMAYOA MD Jan 26, 2024 12:25
[2024-01-26] MEDS: HYDROcodone-ACET 10/325MG TAB PO ONE (13:34)
[2024-01-26 16:00] VITALS: TEMP 98.4
[2024-01-26] MEDS: HYDROcodone-ACET 5/325MG TAB PO ONE (16:36)
[2024-01-26] MEDS ORDERED: COR10OTS OT (17:09)
[2024-01-26 18:00] VITALS: BP 131/37; PULSE 64; RESP 19; O2SAT 98
== END 2024-01-26 18:51 | disposition home or self-care (01) ==
LOC: EDBD 11:58 → ER 11:58
DX: H60.91 Unspecified otitis externa, right ear (principal); H61.21 Impacted cerumen, right ear; E11.9 Type 2 diabetes mellitus without complications; E78.5 Hyperlipidemia, unspecified; I10 Essential (primary) hypertension; J44.9 Chronic obstructive pulmonary disease, unspecified; M19.90 Unspecified osteoarthritis, unspecified site; Z79.82 Long term (current) use of aspirin; Z79.899 Other long term (current) drug therapy; Z90.49 Acquired absence of other specified parts of digestive tract; Z90.710 Acquired absence of both cervix and uterus; Z87.891 Personal history of nicotine dependence
CPT/HCPCS: 69209